=== PATIENT | male | born 1980 | race Caucasian/White ===

== ENCOUNTER 2016-12-11 08:32 | Emergency (ER) | payer OTHER ==
[2016-12-11] MEDS ORDERED: DOCUSATE SODIUM 10 MG/ML SOLN.DROP ONE (09:37)
[2016-12-11] MEDS ORDERED: ACETAMINOPHEN 325 MG TABLET ONE (09:46)
[2016-12-11] MEDS ORDERED: DEXAMETHASONE 4 MG TABLET ONE (09:46)
[2016-12-11] MEDS ORDERED: IBUPROFEN 600 MG TABLET ONE (09:46)
== END 2016-12-11 11:08 | disposition home or self-care (01) ==
LOC: ED 08:32
DX: J06.9 Acute upper respiratory infection, unspecified (principal); J02.9 Acute pharyngitis, unspecified; H61.23 Impacted cerumen, bilateral
CPT/HCPCS: 87880; 87804; 99283 ×2; A9270 ×4